=== PATIENT | female | born 1980 | race Caucasian/White ===

== ENCOUNTER 2018-06-25 19:39 | Inpatient (IN) | payer OTHER ==
[~2018-06-25] VITALS: Ht 160 cm; Wt 57.2 kg
[~2018-06-25 19:39] MED LIST: A-B OTIC EAR DR15 ML OT; ABILIFY1 MG/1 ML; ACETAMINOPHEN-1 EAC1 PO; ALBUTEROL INHAL17 GM; ALBUTEROL INHAL17 GM IH; ALPRAZOLAM 0.0.25 M1 PO; AMBIEN 10 MG TA10 MG PO; AMOXICILLIN 50500 M1 PO; AMOXIL 875 MG875 M1 PO; ATENOLOL 50MG T50 M1 PO; ATIVAN0.5 M1 PO; ATIVAN0.5 MG PO; ATIVAN1 MG; ATIVAN1 MG PO; AUGMENTIN 875875 M1; AZITHROMYC200 MG/51 PO; BACTROBAN CREAM30 G1 TOP; BENTYL 20 MG TA20 M1 PO; CARISOPRODOL 3350 MG PO; CATAPRES0.2 MG PO; CELEXA; CHLORDIAZEPOXID25 M1 PO; CIPRO500 MG PO; CIPROFLOXACIN500 M1 PO; CLEOCIN HCL150 MG PO; CLEOCIN HCL300 MG PO; CLONAZEPAM 0.50.5 M1 PER TUBE; CLONAZEPAM 1 MG1 M1; CLONAZEPAM 1 MG1 M1 PO; CLONIDINE HCL0.2 M2 PO; CLONIDINE0.1; CLONIDINE0.1 PO; COCET TABLET1 EACH PO; CYMBALTA20 MG PO; CYMBALTA30 MG PO; CYMBALTA60 MG; CYMBALTA60 MG PO; DARVOCET-N 1001 EACH PO; DEPAKOTE ER500 MG PO; DIFLUCAN150 M1 PO; DIFLUCAN150 MG PO; DOXYCYCLINE 10100 MG PO; FLAGYL500 MG PO; FLEXERIL PO; FLOMAX PO; HYDROCHLOROTH12.5 MG PO; HYDROCODON-ACE1 EAC7 PO; HYDROCODON-ACE1 EAC8 PO; HYDROCODONE-AP1 EAC6 PO; IBUPROFEN 600600 M1 PO; IBUPROFEN 800800 M1 PO; IBUPROFEN 800800 MG PO; KEFLEX500 MG PO; KEPPRA 500 MG500 M1 PO; KEPPRA250 MG PO; KLONOPIN1 MG PO; LAMICTAL 25 MG25 M1 PO; LEVAQUIN 500 M500 M2 PO; LIDOCAINE HCL 210 M1 TOP; LIDOCAINE VISC100 M1 BUCCAL; LIORESAL 10 MG10 MG PO; LOPERAMIDE 2 MG2 M1 PO; LUNESTA1 MG; MACROBID 100 M100 M1 PO; MEDROLDOSEPACK PO; MOBIC7.5 M1 PO; MOBIC7.5 MG PO; NEURONTIN 400400 M1; NORCO 5-325 TA1 EACH PO; NORCO 7.5-3251 EACH PO; NORFLEX100 MG PO; ONDANSETRON ODT4 MG PO; PENICILLIN VK250 MG PO; PENICILLIN VK500 MG PO; PERCOCET 5-3251 EACH PO; PREDNISONE 20 M20 M1; PREDNISONE 20 M20 MG PO; PYRIDIUM200 M2 PO; QUASENSE1 EACH PO; RESTORA CAPSUL1 EACH PO; ROBAXIN500 MG PO; SOMA250 MG PO; SUBOXONE; SUBOXONE 12 MG1 EACH SL; SUBOXONE 4 MG-1 EACH; SUBOXONE 4 MG-1 EACH SL; SUBOXONE 8 MG-1 EAC3; SUBOXONE 8 MG-1 EAC3 SL; TEGRETOL XR100 MG PO; TIZANIDINE HCL2 M1 PO; TORADOL 10 MG T10 MG PO; TRAMADOL 50 MG50 MG PO; VALACYCLOVIR1000 MG PO; VALTREX 500 MG500 M1 PER TUBE; VICODIN 5-3001 EACH PO; VISTARIL 25 MG25 M1 PO; VRAYLAR1.5 MG PO; XANAX 0.25 MG0.25 MG PO; XANAX 0.5 MG0.5 M1; XANAX 0.5 MG0.5 M1 PO; XANAX 0.5 MG0.5 MG PO; XANAX 1 MG TABLE1 MG PO; XANAX XR0.5 MG PO; XANAX XR1 MG PO; XANAX1 MG PO; ZANAFLEX4 MG PO; ZOFRAN ODT4 MG PO; ZOFRAN4 MG PO; ZPAK PO; [UNRECOGNIZED DRUG - OTHER] PO; [UNRECOGNIZED DRUG - REMARK]
[2018-06-25 19:43] VITALS: BP 158/98
[2018-06-25 20:16] LABS: ABSOLUTE LYMPHOCYTES 2.1 thou/uL (0.8-5.3); ABSOLUTE MONOCYTES 0.5 thou/uL (0.0-1.2); ABSOLUTE NEUTROPHILS 4.2 thou/uL (1.6-8.1); BASOPHILS 0.4 %; EOSINOPHILS 0.5 %; HEMATOCRIT 37.8 % (37.0-47.0); HEMOGLOBIN 12.3 gm/dL (12.0-15.0); LYMPHOCYTES 30.5 %; MCH 26.3 pg (26.0-34.0); MCHC 32.5 g/dL (28.0-37.0); MCV 81.1 fL (80.0-100.0); MONOCYTES 6.7 %; MPV 9.1 fl. (7.2-11.1); NUCLEATED RBCS 0 /100WBC; PLATELET COUNT* 368 thou/uL (150-400); POLYS 61.9 %; RBC 4.66 mil/uL (4.20-5.00); RDW-CV 14.9 % (10.5-14.5); WBC 6.8 thou/uL (4.0-11.0)
[2018-06-25 20:20] LABS: CALCIUM 9.5 mg/dL (8.5-10.1); POTASSIUM 3.2 mmol/L (3.5-5.1)
[2018-06-25 20:24] LABS: ALBUMIN 3.7 g/dL (3.4-5.0); TOTAL BILIRUBIN 0.3 mg/dL (<0.1-1.0); TOTAL PROTEIN 7.9 g/dL (6.4-8.2)
[2018-06-25 20:43] LABS: URINE BILIRUBIN NEGATIVE (Negative); URINE BLOOD TRACE (Negative); URINE CLARITY CLEAR; URINE COLOR YELLOW; URINE GLUCOSE-RANDOM NEGATIVE (Negative); URINE LEUKOCYTES-REFLEX TRACE (Negative); URINE NITRITE-REFLEX NEGATIVE (Negative); URINE PROTEIN TRACE (Negative); URINE UROBILINOGEN 0.2 E.U./dl (0.2-1.0)
[2018-06-25 20:44] LABS: URINE KETONES 3+ (Negative)
[2018-06-25 20:56] LABS: BACTERIA-REFLEX >30 Many /HPF (None Seen); CASTS None Seen /LPF (None Seen); CRYSTALS None Seen /LPF (None Seen); MUCUS 4-6 Moderate strn/LPF (None Seen); SQUAMOUS 0-3 Few /LPF (0-3); URINE RBC 3-10 Few /HPF (0-2); URINE WBC-REFLEX 6-15 Few /HPF (0-5)
[2018-06-25 21:06] LABS: AMP/METHAMP POSITIVE (Negative); BARBITURATES Negative (Negative); BENZODIAZEPINES POSITIVE (Negative); COCAINE Negative (Negative); METHADONE Negative (Negative); OPIATES Negative (Negative); PCP Negative (Negative); THC Negative (Negative)
[2018-06-25 22:09] VITALS: BP 161/105
--- NOTE | 2018-06-26 06:07 | NUR ---
PATIENT ARRIVED ON THE FLOOR FROM ER BROUGHT BY CART AT ABOUT 2230. PATIENT ADMISSION HISTORY AND ASSESSMENT WAS COMPLETED CHARTED. IV FLUIDS WERE STARTED AT 100 ML/HR. PATIENT WAS GIVEN PAIN MEDICINE TWICE WITH GOOD RELIEF. PATIENT IS NPO IN CASE OF PROCEDURE TODAY. WILL CONTINUE TO MONITOR.
[2018-06-26 08:30] VITALS: BP 113/86
[2018-06-26 08:39] VITALS: BP 161/105
[2018-06-26 08:48] VITALS: BP 161/105
--- NOTE | 2018-06-26 14:17 | NUR ---
PATIENT ARRIVED BACK TO UNIT FROM PACU AT 1410. ALERT AND ORIENTED X 4. VITAL SIGNS STABLE ON ROOM AIR. PATIENT IS SLEEPY AT THIS TIME AND DOZING OFF AND ON. CALL LIGHT WITHIN REACH. NURSING WILL CONTINUE TO MONITOR.
[2018-06-26 16:21] VITALS: BP 130/91
--- NOTE | 2018-06-26 17:23 | NUR ---
PATIENT ALERT AND ORIENTED X 4. VITAL SIGNS STABLE ON ROOM AIR. AFEBRILE. UP INDEPENDENTLY IN ROOM. IV PATENT WITH FLUIDS INFUSING. DENIES NAUSEA. PAIN AND BLADDER SPASMS BEING MANAGED WITH PO MEDICATIONS. TOLERATING REGULAR DIET. HOURLY ROUNDS MAINTAINED THROUGHOUT THE SHIFT. CALL LIGHT WITHIN REACH. NURSING WILL CONTINUE TO MONITOR.
[2018-06-27] VITALS: BP 123/79
--- NOTE | 2018-06-27 06:17 | NUR ---
PATIENT SLEPT VERY LITTLE THIS SHIFT. PATIENT ACCIDENTLY PULLED OUT IV. NEW IV WAS STARTED CHARTED. PATIENT STATED PO PAIN PILLS WERE NOT TOUCHING PAIN. PATIENT WAS GIVEN IV DILAUDID ABOUT EVERY 2-3 HOURS. PATIENT CONTINUES TO BE VERY ANXIOUS AND WAS GIVEN ANXIETY MEDICINE NEEDED. PATIENT DOES NOT THINK SHE WILL BE ABLE TO HANDLE LEAVE THE STENT IN FOR 7-10 DAYS DUE TO THE PAIN. PATIENT IS SUPPOSED TO BE DISCHARGED HOME TODAY. WILL CONTINUE TO MONITOR.
[2018-06-27 08:20] VITALS: BP 152/98
[2018-06-27 12:00] VITALS: BP 108/81
--- NOTE | 2018-06-27 14:53 | NUR ---
SW met with pt to complete initial assessment, introduce self, and SW role. Pt alert, oriented. Pt significant other bedside. Pt lives at home with significant other and her mother. Pt goes to [facility] for primary care and any follow up care. SW discussed pt insurance situation with pt and pt wanted to be able to speak with [employer] to try to assist with applying for Medicaid. SW spoke with Jayde and [employer] who plans to contact pt. SW to continue to follow to assist with safe dc planning.
--- NOTE | 2018-06-27 18:01 | NUR ---
PATIENT HAS BEEN ALERT AND ORIENTED TODAY, SLEEPING MOST OF THE DAY. COMPLAINS OF ANXIETY AND PAIN WHEN AWAKE. UP AD CUATE IN ROOM. VITAL SIGNS STABLE ON ROOM AIR. CALL LIGHT IS IN REACH, WILL CONTINUE TO MONITOR,
[2018-06-28] VITALS: BP 137/97
--- NOTE | 2018-06-28 05:12 | NUR ---
PATIENT AWAKE MOST OF THE NIGHT WITH SIGNIFICANT OTHER AT BEDSIDE. PT STATED 'DAY SHIFT WITHHELD HER IV PAIN MEDICATION.' WAS TOLD BY DAY SHIFT RN THAT DR ORDER WAS TO TRY PO PAIN MEDICATION FIRST. PT SAID SHE KNEW IT WOULD NOT WORK AND DID NOT WANT THIS MED BUT WANTED IV MED AND 'SHE'S ALWAYS GLAD WHEN CRIMINAL INVESTIGATOR NURSES COME ON BECAUSE THEY ALWAYS GIVE PT'S WHAT THEY NEED.' PT ALSO STATED, 'DR LOPEZ ALSO INCREASED HER ATIVAN TO 1MG PO INSTEAD OF 0.5MG'. EXPLAINED TO PT THAT THERE WAS NO NOTATION THAT IT WAS INCREASED. PT STATED, 'YES DR LOPEZ BROUGHT IN THE SECOND DOSE OF ATIVAN 0.5MG PO AND GAVE IT TO ME HIMSELF.' DILUADID 1MG IV GIVEN X2 DURING THIS SHIFT AND HYDROCODONE (1) 5/325MG GIVEN X1. PT UP AD CUATE IN ROOM AND TO NURSES STATION. FLUIDS/ANTIBIOTICS INFUSING IN LT AC PER DR ORDER. PT'S SIGNIFICANT OTHER AT NURSES STATION, ANGRY, STATING 'THEY HAVE BEEN WAITING ALL DAY FOR A TOWEL AND HAVE NEVER RECEIVED ONE.' A TOWEL WAS PROVIDED. IT WAS NOTED THAT THE TOWEL WAS PLACED IN A BACK PACK IN THE ROOM ALONG WITH A HOSPITAL BLANKET. A SEPARATE BLANKET WAS FOLDED LENGTHWISE AND PLACED OVER THE OVERHEAD LIGHT IN THE ROOM AND IT WAS ASKED TO BE TAKEN DOWN IT WAS A FIRE HAZZZARD. BLANKET REMOVED WITH NO ISSUE. A RAZOR BLADE WAS NOTED ON THE BEDSIDE TABLE. LINTER OPERATOR AND SECURITY NOTIFIED. FREQUENTLY USED ITEMS AND CALL LIGHT WITHIN REACH. SIDERAILS UPX2. WILL CONTINUE TO MONITOR. SIGNIFICANT OTHER REMOVED
[2018-06-28 07:45] VITALS: BP 132/94
[2018-06-28 16:00] VITALS: BP 130/86
--- NOTE | 2018-06-28 18:22 | NUR ---
PATIENT A&OX4, RA, IV LEF AC SALINE LOCK WITH IV ABX. UP AD CUATE, STEADY GAIT. C/O PAIN, MINIMAL RELIEF WITH MEDICATION. WAITING FOR CULTURE RESULTS FOR DISCHARGE. NO OTHER CONCERNS AT THIS TIME. APPROPRIATE AND COOPORATIVE WITH CARE.
[2018-06-29] VITALS: BP 158/112
--- NOTE | 2018-06-29 00:24 | NUR ---
PATIENT DROWSY FIRST HALF OF THE SHIFT. PT REFUSING TO TAKE 2100 MEDICATIONS UNTIL AROUND MIDNIGHT. PT FELT HER BLOOD PRESSURE HAD BEEN HIGH ALL DAY. BLOOD PRESSURES HAVE BEEN AROUND 130'S SYSTOLIC. PT AND SIGNIFICANT OTHER SAID I WAS A 'NIT WIT' WHEN THEY WERE TOLD 130'S WAS AN ACCEPTABLE SYSTOLIC. PT WITH HIGH BLOOD PRESSURE NOW BUT PAIN AND ANXIETY AND MEDICATIONS WERE JUST GIVEN. WILL RECHECK B/P IN A FEW HOURS. PT SAID SHE WAS VERY ANXIOUS AND WANTED TO GO HOME RONI BUT SHE KNEW SHE WAS 'TOO SICK TO BE GOING HOME.' PT SAID HER URINE WAS NOW CLEAR YELLOW. PT REASSURED THIS WAS A GOOD SIGN BUT SHE SAID SHE FELT SHE WAS STILL 'TOO SICK'. SIGNIFICANT OTHER REQUESTING TWO BOXED LUNCHES AND JUICE FOR BOTH OF THEM. FREQUENTLY USED ITEMS AND CALL LIGHT WITHIN REACH. SIDERAILS UPX2. WILL CONTINUE TO MONITOR.
[2018-06-29 04:00] VITALS: BP 170/107
[2018-06-29 05:08] LABS: HEMATOCRIT 32.6 % (37.0-47.0); HEMOGLOBIN 10.5 gm/dL (12.0-15.0); MCH 26.9 pg (26.0-34.0); MCHC 32.1 g/dL (28.0-37.0); MCV 83.7 fL (80.0-100.0); MPV 9.7 fl. (7.2-11.1); RBC 3.89 mil/uL (4.20-5.00); RDW-CV 15.8 % (10.5-14.5); WBC 7.3 thou/uL (4.0-11.0)
[2018-06-29 05:51] LABS: ALBUMIN 2.8 g/dL (3.4-5.0); CALCIUM 8.8 mg/dL (8.5-10.1); CREATININE 0.9 mg/dL (0.6-1.3); MAGNESIUM 1.8 mg/dL (1.8-2.4); POTASSIUM 4.8 mmol/L (3.5-5.1); TOTAL BILIRUBIN 0.1 mg/dL (<0.1-1.0); TOTAL PROTEIN 6.2 g/dL (6.4-8.2)
--- NOTE | 2018-06-29 05:53 | NUR ---
PATIENT UPSET THAT BLOOD PRESSURE WAS HIGH DURING THE NIGHT. TY BERNAL WAS PLACED TO AND NO NEW ORDERS RECEIVED. PT TOLD NURSES AIDE SHE WAS GOING TO LEAVE. PAIN AND ANXIETY MEDS TAKEN INTO PT'S ROOM AT 0400 AND PT REFUSED TO TAKE PO PAIN MED. DILUADID 1MG IV GIVEN ALONG WITH ONE IBUPROFEN AND XANAX. PT WAS TOLD PRIOR TO MEDICATION GIVEN THAT SHE COULD NOT HAVE MEDICATION IF SHE DECIDED TO LEAVE AMA AND PT DECIDED TO STAY. PT SAID HER URINE WAS NOW PINK AGAIN WITH SMALL CLOTS. PT REASSURED THIS WAS NORMAL AND ASKED NOT TO FLUSH TOILET NEXT TIME SHE VOIDED SO NURSE COULD SEE. PT ANXIOUS SAYING HER ABDOMEN WAS DISTENDED. PT HAS HYPERACTIVE BOWEL SOUNDS AND PT WAS DRINKING ENSURE AT THE TIME. PT DENIES BOWEL MOVEMENTS FOR SEVERAL DAYS BUT REFUSED 2100 MIRALAX SAYING PRIOR DOSE CAUSED ABD PAIN. PT ENCOURAGED TO AMBULATE IN THE [place] BUT REFUSED SAYING SHE WAS IN TOO MUCH PAIN. FREQUENTLY USED ITEMS AND CALL LIGHT WITHIN REACH. SIDERAILS UPX2. WILL CONTINUE TO MONITOR.
--- NOTE | 2018-06-29 06:41 | NUR ---
PATIENT AMBULATING IN [place], GOT HER OWN WATER AND SAID SHE HAD A BOWEL MOVEMENT THIS MORNING. PT DENIES ABDOMINAL PAIN AND SAID SHE FELT HER BLOOD PRESSURE HAS COME DOWN. PT TOLD WE WOULD HAVE BLOOD PRESSURE RECHECKED AND PT REFUSED TO HAVE IT DONE AT THIS TIME. WILL CONTINUE TO MONITOR.
[2018-06-29 07:55] VITALS: BP 144/98
--- NOTE | 2018-06-29 11:07 | EKG ---
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
[2018-06-29] MEDS ORDERED: KEPPRA 500 MG500 M1 PO (11:24)
[2018-06-29] MEDS ORDERED: TRAMADOL 50 MG50 MG PO (11:24)
[2018-06-29] MEDS ORDERED: CYMBALTA60 MG PO (11:24)
[2018-06-29] MEDS ORDERED: LEVSIN0.125 MG SUBLING (11:24)
[2018-06-29] MEDS ORDERED: XANAX 0.5 MG0.5 MG PO (11:24)
[2018-06-29] MEDS ORDERED: IBUPROFEN 800800 M1 PO (11:24)
[2018-06-29] MEDS ORDERED: PROCARDIA10 MG PO (11:27)
--- NOTE | 2018-06-29 14:18 | NUR ---
D/C BUFFING MACHINE TENDER INFORMED THAT PATIENT WILL NEED A F/U APPOINTMENT FOR STENT REMOVAL. D/C BUFFING MACHINE TENDER SPOKE TO [facility] TO INFORM OF THE NEED TO SETUP AN APPOINTMENT FOR STENT REMOVAL. ANA INFORMS OF NEED TO CONTACT FELICIANO SWAN. FELICIANO SWAN WAS NOT AVAILABLE AND VOICEMAIL INFORMS THAT THE [employer] IS OUT OF THE OFFICE FOR ONE WEEK, AND NO APPOINTMENTS CAN BE MADE AT THIS TIME. INFORMED THE RN IN-CHAG[place] OF THE PATIENT OF THIS INFO AND NEED TO CONTACT DR BAUTISTA TO DISCUSS. RN INFORMS THAT DR BAUTISTA'S NURSE HAS SET AN APPOINTMENT FOR THE PATIENT WITH DR BAUTISTA TO REMOVE STENT IN THE OFFICE WEDNESDAY (07/04/18) AT 0840 AND PATIENT MUST ARRIVE AT 0820. RN TO INFORM PATIENT OF THIS INFO. CM WILL REMAIN AVAILABLE TO ASSIST AND FOLLOW NEEDED.
[2018-06-29 15:58] VITALS: BP 144/98
[2018-06-29 16:07] VITALS: BP 148/78
[2018-06-29] MEDS ORDERED: KEFLEX500 M1 PO (16:27)
--- NOTE | 2018-06-29 17:35 | NUR ---
PATIENT A&OX4, RA, IV LEFT AC, IV ABX. IV DISCONTINUED, CATHETER FULLY INTACT. UP AD CUATE, STEADY GAIT. C/O PAIN, PARTIAL RELIEF WITH MEDICATION. PATINET DISCHARGED WITH ABX AND NEW PRESCRIPTIONS. VERBALIZES UNDERSTANDING. NO FURTHER QUESTIONS. PATIENT TRIED TO LEAVE UNIT WITH [facility], HAD TO INFORM PT THAT THEY CAN NOT TAKE IT. LEFT UNIT AMBULATORY AT 1720 WITH S.O. AND NURSING STAFF. PATIENT LEFT BEHIND BELONGINGS IN ROOM, SOCKS, SCISSORS, COMB, LIGHTERS. CALLED PATIENT AND LEFT MESSAGE. BELONGINGS TAKEN TO SECURITY FOR SAUSAGE COOKER.
[2018-07-05 18:10] LABS: STONE CA OXALATE MONOHYDRATE 90 % (()); STONE COLOR Brown (()); STONE COMMENT Note: (()); STONE WEIGHT 5.2 mg (())
--- NOTE | 2018-07-12 15:21 | OP ---
[address] [address] OPERATIVE REPORT Name: KATRINA JOHNSON Room: [address] IN M.R.#: [id number] Admission: 06/25/18 Attend Phys: Santo Wagoner, Discharge: 06/29/18 Date of : 82 Report #: [id number] THIS REPORT FOR: //name// CC: [facility] physician/PCP Santo Wagoner DATE OF SERVICE: 06/26/2018 PREOPERATIVE DIAGNOSIS: Left obstructing ureteral stone with probable urinary tract infection. POSTOPERATIVE DIAGNOSIS: Left obstructing ureteral stone with probable urinary tract infection. PROCEDURE PERFORMED: Cystoscopy, left retrograde pyelogram, left ureteroscopy with laser lithotripsy of stone and JJ stent placement. SURGEON: Jayson Pillai MD COMPLICATIONS: None. DRAINS: Include a 4.8 x 26 cm ureteral stent. SPECIMEN: Stone to pathology. ANESTHESIA: General. STATEMENT OF MEDICAL INDICATION: This is a 38-year-old female who has had intermittent left-sided abdominal pain for the last month. She had a transvaginal ultrasound that suggested a left distal ureteral stone and then an abdominal ultrasound that confirmed the finding. Her UA did show many bacteria and a few white cells. So with the potential of infection as well it was felt that she should go promptly to the operating room. It is likely that we will need to take care of the stone as well since the stone is very distal and we will probably do ureteroscopic laser of the stone as well. In advance we discussed the procedure, risks, potential complications with the patient and her fiance including but not limited to bleeding, infection, scar tissue formation, injury to the urinary tract or adjacent structures or need for further procedures, and worsening of any infection. DESCRIPTION OF PROCEDURE: The patient was then taken to the operating room and placed under general anesthesia, was prepped and draped in sterile fashion in dorsal lithotomy position. Cystoscopy was carried out. The patient's bladder was normal. Left ureteral orifice was cannulated and the Pollack catheter would not advance due to the stones being lodged distally. [place] [address] OPERATIVE REPORT Name: KATRINA JOHNSON Room: [address] IN [facility].#: [id number] Admission: 06/25/18 Attend Phys: Santo Wagoner, Discharge: 06/29/18 Date of : 82 Report #: [id number] was advanced beyond the stones. A semirigid ureteroscope was inserted up to the level of the stones. A 365 micron holmium laser fiber was used to fragment the stones into multiple small pieces, which were engaged in a basket and removed. Then, the cystoscope was backloaded over the wire and a 4.8 x 26 cm stent was placed with a coil in the renal pelvis and a coil in the bladder. The patient was given a Uro-Jet per urethra and a B and O suppository, returned to recovery room in satisfactory condition. POSTOPERATIVE PLAN: The patient should probably continue IV antibiotics overnight until her cultures are available and she would be able to be discharged and follow up with me in a week for a cystoscopy and stent removal. She does not need a KUB prior. <ELECTRONICALLY SIGNED> By: Jayson Pillai MD 07/12/18 1521 1330 [id number] Pillai MD /nt
== END 2018-06-29 17:24 | disposition home or self-care (01) | DRG 854 ==
LOC: M.ERS 19:39 → M.TBA-ER 21:25 → M.3W 21:25
PROVIDERS: Internal Medicine; Physician Assistant; ADMIT Family Medicine
PROC: 0T778DZ Dilation of Left Ureter with Intraluminal Device, Via Natural or Artificial Opening Endoscopic (ICD-10-PCS; principal; 2018-06-26)
PROC: BT1F1ZZ Fluoroscopy of Left Kidney, Ureter and Bladder using Low Osmolar Contrast (ICD-10-PCS; principal; 2018-06-26)
PROC: 0TC78ZZ Extirpation of Matter from Left Ureter, Via Natural or Artificial Opening Endoscopic (ICD-10-PCS; principal; 2018-06-26)
DX: A41.51 Sepsis due to Escherichia coli [E. coli] (principal); N13.6 Pyonephrosis; F31.9 Bipolar disorder, unspecified; F41.9 Anxiety disorder, unspecified; F60.3 Borderline personality disorder; F17.210 Nicotine dependence, cigarettes, uncomplicated; G40.909 Epilepsy, unspecified, not intractable, without status epilepticus; F15.10 Other stimulant abuse, uncomplicated; Z16.23 Resistance to quinolones and fluoroquinolones; Z98.891 History of uterine scar from previous surgery; Z87.442 Personal history of urinary calculi; Z79.899 Other long term (current) drug therapy; Z91.14 Patient's other noncompliance with medication regimen; Z88.1 Allergy status to other antibiotic agents; Z88.5 Allergy status to narcotic agent; Z88.2 Allergy status to sulfonamides; Z88.8 Allergy status to other drugs, medicaments and biological substances

== ENCOUNTER 2018-07-26 07:03 | Emergency (ER) | payer OTHER ==
[~2018-07-26] VITALS: Ht 162.6 cm; Wt 53.5 kg
[~2018-07-26 07:03] MED LIST changes: +KEFLEX500 M1 PO; +LEVSIN0.125 MG SUBLING; +PROCARDIA10 MG PO
[2018-07-26] MEDS ORDERED: XANAX 0.5 MG0.5 M1 PO (08:37)
[2018-07-26 08:51] VITALS: BP 145/88
== END 2018-07-26 08:54 | disposition home or self-care (01) ==
LOC: M.ERS 07:03
DX: F41.0 Panic disorder [episodic paroxysmal anxiety] (principal); F17.210 Nicotine dependence, cigarettes, uncomplicated; F31.9 Bipolar disorder, unspecified; F20.9 Schizophrenia, unspecified; Z88.8 Allergy status to other drugs, medicaments and biological substances; Z88.6 Allergy status to analgesic agent; Z88.2 Allergy status to sulfonamides; Z88.5 Allergy status to narcotic agent; Z98.890 Other specified postprocedural states

== ENCOUNTER 2018-08-30 15:36 | Emergency (ER) | payer OTHER, MEDICAID ==
[~2018-08-30] VITALS: Ht 160 cm; Wt 54.0 kg
[2018-08-30 16:17] VITALS: BP 115/86
== END 2018-08-30 16:18 | disposition home or self-care (01) ==
LOC: M.ERS 15:36
DX: F41.9 Anxiety disorder, unspecified (principal); F17.210 Nicotine dependence, cigarettes, uncomplicated; F31.9 Bipolar disorder, unspecified; F20.9 Schizophrenia, unspecified; Z88.8 Allergy status to other drugs, medicaments and biological substances; Z88.6 Allergy status to analgesic agent; Z88.2 Allergy status to sulfonamides; Z88.5 Allergy status to narcotic agent; Z98.890 Other specified postprocedural states

== ENCOUNTER 2018-09-27 17:21 | Emergency (ER) | payer OTHER, MEDICAID ==
[~2018-09-27] VITALS: Ht 160 cm; Wt 45.4 kg
[2018-09-27] MEDS ORDERED: CYMBALTA60 MG PO (17:30)
[2018-09-27] MEDS ORDERED: KEPPRA 500 MG500 M1 PO (17:30)
[2018-09-27 17:52] LABS: URINE BILIRUBIN NEGATIVE (Negative); URINE BLOOD NEGATIVE (Negative); URINE CLARITY CLEAR; URINE COLOR YELLOW; URINE GLUCOSE-RANDOM NEGATIVE (Negative); URINE KETONES NEGATIVE (Negative); URINE LEUKOCYTES-REFLEX NEGATIVE (Negative); URINE NITRITE-REFLEX NEGATIVE (Negative); URINE PROTEIN NEGATIVE (Negative); URINE UROBILINOGEN 0.2 E.U./dl (0.2-1.0)
[2018-09-27 17:58] LABS: AMP/METHAMP POSITIVE (Negative); BARBITURATES Negative (Negative); BENZODIAZEPINES Negative (Negative); COCAINE Negative (Negative); METHADONE Negative (Negative); OPIATES Negative (Negative); PCP Negative (Negative); THC Negative (Negative)
[2018-09-27 18:12] LABS: ABSOLUTE BASOPHILS 0.1 thou/uL (0.0-0.2); ABSOLUTE LYMPHOCYTES 2.3 thou/uL (0.8-5.3); ABSOLUTE MONOCYTES 0.6 thou/uL (0.0-1.2); ABSOLUTE NEUTROPHILS 3.6 thou/uL (1.6-8.1); BASOPHILS 1.2 %; EOSINOPHILS 0.7 %; HEMATOCRIT 35.2 % (37.0-47.0); HEMOGLOBIN 11.2 gm/dL (12.0-15.0); LYMPHOCYTES 35.1 %; MCH 25.1 pg (26.0-34.0); MCHC 31.9 g/dL (28.0-37.0); MCV 78.7 fL (80.0-100.0); MONOCYTES 8.9 %; MPV 9.1 fl. (7.2-11.1); NUCLEATED RBCS 0 /100WBC; PLATELET COUNT* 264 thou/uL (150-400); POLYS 54.1 %; RBC 4.47 mil/uL (4.20-5.00); RDW-CV 17.3 % (10.5-14.5); WBC 6.7 thou/uL (4.0-11.0)
[2018-09-27 18:22] LABS: ANION GAP 11 mmol/L (7-16); BUN 10 mg/dL (7-18); CALCIUM 9.2 mg/dL (8.5-10.1); CHLORIDE 103 mmol/L (98-107); CO2 23 mmol/L (21-32); CREATININE 0.9 mg/dL (0.6-1.3); GLUCOSE 87 mg/dL (70-99); POTASSIUM 3.1 mmol/L (3.5-5.1); SODIUM 137 mmol/L (136-145)
[2018-09-27 18:30] LABS: ALBUMIN 3.8 g/dL (3.4-5.0); ALKALINE PHOSPHATASE 74 U/L (46-116); SGOT 14 U/L (15-37); SGPT 17 U/L (30-65); TOTAL BILIRUBIN 0.2 mg/dL (<0.1-1.0); TOTAL PROTEIN 7.7 g/dL (6.4-8.2); TROPONIN-I LEVEL <0.06 ng/mL (<0.06)
[2018-09-27] MEDS ORDERED: ATIVAN0.5 MG PO (19:00)
[2018-09-27] MEDS ORDERED: KEPPRA 500 MG500 M2 PO (19:02)
[2018-09-27 20:04] VITALS: BP 129/92
--- NOTE | 2018-09-28 09:03 | EKG ---
[place] [address] ELECTROCARDIOGRAM REPORT Name: KATRINA JOHNSON [id number] Admission: 09/27/18 Attend Phys: Discharge: 09/27/18 Date of : 82 Report #: [id number] THIS REPORT FOR: //name// [facility] ED Test Date: 2018-09-27 Test Time: 18:25:00 Pat Name: KATRINA JOHNSON Department: Room: Gender: F Mechanical Project Manager: Marie CURRY : 1980 Requested By: Cynthia Storm Order Number: [id number] MD: Yaya Easton Measurements Intervals Elizabeth Rate: 74 P: 73 RI: 149 QRS: 36 QRSD: 77 T: 43 QT: 380 QTc: 422 Interpretive Statements Sinus rhythm Abnormal R-wave progression, early transition Compared to ECG 06/29/2018 09:05:13 No significant changes Electronically Signed On 09-28-2018 9:03:13 BAG MAKING MACHINE TENDER by Yaya Easton [email or web address] <ELECTRONICALLY SIGNED> By: Yaya Easton MD, [facility] 09/28/18902 24 24 Yaya Easton MD, FACC /EPI
== END 2018-09-27 20:06 | disposition home or self-care (01) ==
LOC: M.ERS 17:21
PROVIDERS: Nurse Practitioner Family
DX: F41.9 Anxiety disorder, unspecified (principal); R07.89 Other chest pain; F15.10 Other stimulant abuse, uncomplicated; F31.9 Bipolar disorder, unspecified; F20.9 Schizophrenia, unspecified; F17.210 Nicotine dependence, cigarettes, uncomplicated; Z88.1 Allergy status to other antibiotic agents; Z88.2 Allergy status to sulfonamides; Z88.6 Allergy status to analgesic agent; Z88.8 Allergy status to other drugs, medicaments and biological substances; Z98.890 Other specified postprocedural states; Z79.899 Other long term (current) drug therapy